=== PATIENT | male | born 1975 | race Caucasian/White ===

== ENCOUNTER 2017-04-11 21:31 | Emergency (ER) | payer SELFPAY ==
[~2017-04-11] VITALS: Ht 180.3 cm; Wt 81.7 kg
== END 2017-04-11 23:05 | disposition home or self-care (01) ==
LOC: ER 21:31
DX: S16.1XXA Strain of muscle, fascia and tendon at neck level, initial encounter (principal); F19.10 Other psychoactive substance abuse, uncomplicated; Z87.891 Personal history of nicotine dependence; W19.XXXA Unspecified fall, initial encounter
CPT/HCPCS: 72040; 99283